=== PATIENT | female | born 2000 | race African-American/Black ===

== ENCOUNTER 2021-06-27 17:39 | Emergency (ER) | payer SELFPAY ==
[2021-06-28 23:23] LABS: SARS-CoV-2 PCR by NAA DETECTED (NotDetected)
== END 2021-06-27 18:17 | disposition home or self-care (01) ==
LOC: NAV ERS 17:39
DX: U07.1 COVID-19 (principal); T78.40XA Allergy, unspecified, initial encounter
CPT/HCPCS: 99283; U0003; U0005

== ENCOUNTER 2021-10-03 20:43 | Emergency (ER) | payer OTHER, SELFPAY ==
[2021-10-03] MEDS ORDERED: Acetaminophen 500 MG TAB ONE (21:08)
[2021-10-04 18:27] LABS: SARS-CoV-2 PCR by NAA DETECTED (NotDetected)
== END 2021-10-03 22:28 | disposition home or self-care (01) ==
LOC: NAV ERS 20:43
DX: S82.842A Displaced bimalleolar fracture of left lower leg, initial encounter for closed fracture (principal); U07.1 COVID-19; W01.0XXA Fall on same level from slipping, tripping and stumbling without subsequent striking against object, initial encounter
CPT/HCPCS: 29515; U0003; U0005

== ENCOUNTER 2021-10-06 20:44 | Emergency (ER) | payer SELFPAY | END 2021-10-06 21:22 | disposition home or self-care (01) | LOC: NAV ERS 20:44 | DX: M79.89 Other specified soft tissue disorders (principal) | CPT/HCPCS: 99283 ==

== ENCOUNTER 2022-01-30 14:34 | Emergency (ER) | payer SELFPAY ==
[2022-01-30] MEDS ORDERED: Ondansetron ODT 4 MG TAB ONE (15:00)
[2022-01-30 15:17] LABS: Bilirubin Negative (Negative); Blood, Urine Negative (Negative); Clarity Clear (Clear); Glucose, Urine (Dipstick) Negative (Negative); Ketone, Urine Negative (Negative); Leukocyte Trace (Negative); Nitrite Negative (Negative); Protein, Urine (Dipstick) Negative (Neg-Trace); Urobilinogen 0.2 mg/dL (Less than 2)
[2022-01-30 15:20] LABS: RBC/HPF 0-3 HPF (0-3); WBC/HPF 0-3 HPF (0-3)
[2022-01-30 15:21] LABS: Pregnancy Test - Urine (BHCG) Negative (Negative); Pregu Control Background? CLEAR/WHITE (CLR/WHITE); Pregu Control Bar Appear? YES (CONTROL BAR)
== END 2022-01-30 16:13 | disposition home or self-care (01) ==
LOC: NAV ERS 14:34
DX: J02.9 Acute pharyngitis, unspecified (principal); R11.0 Nausea
CPT/HCPCS: 81003; 81015; 81025; 87081; 87430; 99283; Q0162